=== PATIENT | female | born 1970 | race Caucasian/White ===

== ENCOUNTER 2024-07-17 06:55 | Day surgery (SDC) | payer OTHER, SELFPAY ==
[2024-07-17] VITALS (8 sets, daily range): BP systolic 68–110; BP diastolic 57–67; PULSE 60–74; RESP 12–16; TEMP 36.4–37.2; O2SAT 98–100
--- NOTE | 2024-07-17 07:30 | PCM.PRE.AN2 ---
ASA Classification* ASA Classification ASA Classification: 2 Assessment & Plan Anesthesia* Anesthesia Assessment Anesthesia Assessment: Discussed sedation and/or anesthesia options, risks, benefits, and alternatives with patient/parents/legal guardian/POA. Questions invited. The patient/parents/legal guardian/POA seems to understand and agrees to proceed with anesthesia plan. Reviewed the physical assessment, medical history, allergy history and patient home medications list prior to surgery/procedure/anesthetic and documented any changes. Performed airway and anesthesia risk assessments. 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 When Was Last Pacemaker Check QUESTION #4 FULL TEXT: You/Your Family Experience fever (hyperthermia) with Anesthesia Last Oral Intake Last Oral intake: Last Oral Intake NPO since 04:00 07/17/24 07:26 Meds taken in AM with sips of water? Meds patient instructed to take am of surgery PONV PONV - food and beverage order clerk: PONV - food and beverage order clerk Female Yes 07/16/24 09:03 HX of Motion Sickness Yes 07/16/24 09:03 HX of N/V After Surgery Yes 07/16/24 09:03 Non-Smoker Yes 07/16/24 09:03 Duration of Surgery greater No 07/16/24 09:03 than 60 minutes Number of Risk Factors 4 07/16/24 09:03 PONV Score Severe Risk 07/16/24 09:03 Height & Weight Height & Weight: Anesthesia: Height & Weight Height 5 ft 7 in 07/17/24 07:26 Weight: 58 kg 07/17/24 07:26 Body Mass Index (BMI) 20.0 07/17/24 07:26 Respiratory Assessment Respiratory Assessment - food and beverage order clerk: Respiratory Tract Infection Hx - food and beverage order clerk Hx Respiratory Tract Infection No 07/16/24 09:03 STOP Sleep Apnea STOP Sleep Apnea - food and beverage order clerk: STOP Sleep Apnea - food and beverage order clerk Hx Hypertension No 07/16/24 09:03 Hx Sleep Apnea No 07/16/24 09:03 CPAP BIPAP Do you snore loudly (louder No 07/16/24 09:03 than talking or can be heard Do you often feel tired/ No 07/16/24 09:03 fatigued/ sleepy during daytime? Has anyone observed you stop No 07/16/24 09:03 breathing during sleep? STOP Results Negative 07/16/24 09:03 QUESTION #5 FULL TEXT : Do you snore loudly (louder than talking or can be heard through closed doors)? 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 Specify any problems Hx of Preganancy in last 3 No 07/16/24 09:03 Months Nurse Filling Out Transfusion VCHRISTIN 07/16/24 09:03 & Questions: Date: 07/16/24 07/16/24 09:03 Time: 09:05 07/16/24 09:03 Patient unable to answer at this time (ie. confused, unrespo /Reproduction History /Reproductive History - food and beverage order clerk: /Reproductive Hx- food and beverage order clerk Hx Now No 07/16/24 09:03 Gestational Age (in weeks): EDC: Hx Hx Para Hx Section SAB No 07/16/24 09:03 Active Medications Active Medications: Current Medications Generic Name Dose Route Start Last Admin Trade Name Freq PRN Reason Stop Dose Admin Lactated Ringer's 1,000 mls @ 15 mls/hr 07/17/24 07:15 07/17/24 07:31 IV 15 mls/hr .Q48H PATTIE Administration PFSH Medical History Gastric reflux Non-smoker History of echocardiogram Low back pain Home Medications ?Medication ?Instructions ?Recorded ?Last Taken ?Type Lactobacillus acidophilus 10 100 mmu cells PO DAILY 07/16/24 Unknown History billion cell capsule (NewFlora) apple cider vinegar 600 mg capsule 600 mg PO DAILY 07/16/24 Unknown History ascorbic acid (vitamin C) 500 mg 500 mg PO DAILY PRN cold symptoms 07/16/24 Unknown History tablet (C-500) cholecalciferol (vitamin D3) 25 25 mcg PO DAILY COLD SYMPTOMS 07/16/24 Unknown History mcg (1,000 unit) capsule (Vitamin D3) multivitamin (Daily Multi-Vitamin 1 tab PO DAILY 07/16/24 Unknown History tablet) zinc gluconate 50 mg tablet 50 mg PO DAILY PRN cold symptoms 07/16/24 Unknown History Allergy/AdvReac Type Severity Reaction Status Date / Time No Known Allergies Allergy Verified 07/16/24 08:55 Surgical History Hx of tubal ligation Hx of surgical fusion joint Hx of hernia repair Hx of section Social History Smoking Status: Never smoker Review of Systems (Anesthesia) ROS Narrative System reviewed and no additional complaints, except as documented.
[2024-07-17] MEDS: Lactated Ringers 1,000 ML 15 ML IV (07:31)
--- NOTE | 2024-07-17 07:45 | PCM.HP.BLA ---
History and Physical Date of Admission: 07/17/24 MICKEY TORREZ, is a 54 F who presents to the office today for initial consult. *[facility] established 8 pt reports that she has an external hemorrhoid that has been bothering her recently; she said it aches and she notices it when she sits. pt reports that her last colonoscopy was in 2016. Pt reports a long history of GERD and takes OTC supplements to manage this. ROS Const Constitutional: Positive for fatigue; No fever(s) or weight change ENT ENT: No difficulty swallowing Gastro GI: Positive for bloating, change in bowel habits, constipation, diarrhea, heartburn and excessive flatus; No abdominal pain, belching, change in stool character, coffee ground emesis, cramping, difficulty swallowing, feeling full early, incontinent of stools, Vomiting blood/hematemesis, Blood in stool, loose stools, Black,tarry stools, nausea/dyspepsia, pain with swallowing, vomiting or other Musc Musculoskeletal: Positive for muscle cramps, numbness, tingling and restless legs; No joint pain Skin Skin: No yellowing of the eye or itchy eyes Neuro Neurology: Positive for numbness, tingling and restless legs Psych Psychiatric: No anxiety and No depression Endo Endocrine: Positive for fatigue; No weight change Aller/Imm Allergy/Immunologic: No itchy eyes Delfino/Lymp Hematologic/Lymphatic: No easy bleeding or easy bruising Exam Const General: cooperative and comfortable Nutritional Appearance: average body habitus and well nourished [facility] Head: normal to inspection Ears: hearing grossly normal bilaterally Nose: external nose normal Face and sinus: normal facial exam Mouth: oral mucosae normal Throat: posterior oropharynx normal Eyes General: appearance normal, both eyes and all related structures Neck Neck: normal visual inspection Chest Chest palpation & inspection: normal inspection of the chest and normal palpation of entire chest wall Resp Effort & Inspection: normal respiratory effort Auscultation: Bilateral: Clear to Auscultation Cardio Palpation: normal PMI Rate: regular rate Rhythm: regular rhythm GI Inspection: normal to inspection Auscultation: normal bowel sounds Percussion: normal to percussion Palpation: no hepatosplenomegaly Skin General: no rashes or lesions noted Neuro General: patient alert Extrem General: normal to inspection Psych Affect: normal affect Assessment and Plan Assessment and Plan (1) Hemorrhoids: (2) Encounter for screening colonoscopy: Status: Acute Plan: Very pleasant 54-year-old with no significant past medical history comes in with pressure and pain per rectum. She has a known history of hemorrhoidal disease that was poorly responsive to therapy however it is getting to be an issue regarding sitting and other daily activities. She says she has not had a screening colonoscopy we will schedule her for a screening colonoscopy and treatment of her hemorrhoidal disease. She was explained alternatives, risk, benefits include not withstanding bleeding, infection, sepsis, perforation, need for emergent urgent . She have an ASA of 3. Orders: Orders Colonoscopy Today K64.9 - Unspecified hemorrhoids I have examined the patient and the H&P has been reviewed. There are no clinical changes since date of exam.
--- NOTE | 2024-07-17 08:53 | OP.CCLET_ITS ---
07/17/2024 Valente Gamez Do Re : Colonoscopy procedure for Danielle Witt Dear Franco This procedure was performed on Wednesday, July 17, 2024. My impressions and recommendations are as follows: Impressions : - Hemorrhoids found on perianal exam. - Non-bleeding external and internal hemorrhoids. Banded. - Anal fissure. Treated with argon plasma coagulation (APC). - Diverticulosis in the recto-sigmoid colon and in the sigmoid colon. - No specimens collected. Recommendations : - Repeat colonoscopy in 10 years for screening purposes. - Continue present medications. My findings are described in the full procedure note, which is enclosed. If I can be of further assistance, please feel free to contact me at . Sincerely, Jose Shaikh, 07/17/2024 8:52:53 AM This report has been signed electronically.
--- NOTE | 2024-07-17 08:53 | OP.COLON_ITS ---
Patient Name: Danielle Witt Procedure Date: 07/17/2024 8:11 AM Date of : 1970 Age: 54 Procedure: Colonoscopy Indications: Screening for colorectal malignant neoplasm Providers: Jose Shaikh DO Medicines: Monitored Anesthesia Care Patient Profile: This is a 54 year old female. Refer to note in patient chart for documentation of history and physical. Last Colonoscopy: 10 years ago. Complications: No immediate complications. Procedure: Pre-Anesthesia Assessment: - Prior to the procedure, a History and Physical was performed, and patient medications and allergies were reviewed. The patient is competent. The risks and benefits of the procedure and the sedation options and risks were discussed with the patient. All questions were answered and informed consent was obtained. Patient identification and proposed procedure were verified by the physician in the pre-procedure area. Mental Status Examination: alert and oriented. Airway Examination: normal oropharyngeal airway and neck mobility. Respiratory Examination: clear to auscultation. CV Examination: normal. Prophylactic Antibiotics: The patient does not require prophylactic antibiotics. Prior Anticoagulants: The patient has taken no anticoagulant or antiplatelet agents except for NSAID medication. ASA Grade Assessment: II - A patient with mild systemic disease. After reviewing the risks and benefits, the patient was deemed in satisfactory condition to undergo the procedure. The anesthesia plan was to use monitored anesthesia care (MAC). Immediately prior to administration of medications, the patient was re-assessed for adequacy to receive sedatives. The heart rate, respiratory rate, oxygen saturations, blood pressure, adequacy of pulmonary ventilation, and response to care were monitored throughout the procedure. The physical status of the patient was re-assessed after the procedure. After I obtained informed consent, the scope was passed under direct vision. Throughout the procedure, the patient's blood pressure, pulse, and oxygen saturations were monitored continuously. The Colonoscope was introduced through the anus and advanced to the cecum, identified by appendiceal orifice and ileocecal valve. The colonoscopy was performed without difficulty. The patient tolerated the procedure well. The quality of the bowel preparation was adequate. The ileocecal valve, appendiceal orifice, and rectum were photographed. Scope In: 8:22:21 AM Scope Withdrawal Time 0 hours 15 minutes 24 seconds Scope Out: 8:42:31 AM Total Procedure Duration Time 0 hours 20 minutes 10 seconds Findings: Hemorrhoids were found on perianal exam. Non-bleeding external and internal hemorrhoids were found during retroflexion. The hemorrhoids were Grade II (internal hemorrhoids that prolapse but reduce spontaneously). The endoscope was withdrawn. A hemorrhoid was isolated with anoscopy. The ShortShot ligator was positioned over the hemorrhoid at the left lateral position. Suction was applied and one rubber band was placed over the hemorrhoid. This was checked to make certain that the muscularis was free of the band. Post-banding digital rectal exam showed band in good position. There were no complications. A 5 mm anal fissure was found in the anal canal. Coagulation for bleeding prevention using argon plasma at 0.3 liters/minute and 20 batista was successful. Estimated blood loss was minimal. A few small and large-mouthed diverticula were found in the recto-sigmoid colon and sigmoid colon. Impression: - Hemorrhoids found on perianal exam. - Non-bleeding external and internal hemorrhoids. Banded. - Anal fissure. Treated with argon plasma coagulation (APC). - Diverticulosis in the recto-sigmoid colon and in the sigmoid colon. - No specimens collected. Recommendation: - Repeat colonoscopy in 10 years for screening purposes. - Continue present medications. Procedure Code(s): --- Professional --- 19536, Colonoscopy, flexible; with control of bleeding, any method 76755, Hemorrhoidectomy, internal, by rubber band ligation(s) CPT copyright 2021 [employer]. All rights reserved. The codes documented in this report are preliminary and upon gripper machine operator review may be revised to meet current compliance requirements. Jose Shaikh DO 07/17/2024 8:52:53 AM This report has been signed electronically. Number of Addenda: 0 Note Initiated On: 07/17/2024 8:11 AM
--- NOTE | 2024-07-17 08:53 | PCM.POST.ANE ---
Anesthesia: Postop Eval I Current Vital Signs Temperature: 98.3 F Pulse Rate: 61 Blood Pressure: 86/59 Respiratory Rate: 12 Pulse Ox: 98 Oxygen Delivery Method: Room Air Assessment Airway patent: Yes Spontaneous unlabored respirations: Yes Mental status: Asleep nausea: No Vomiting: No Anesthesia Complication: No Fluid Hydration Crystalloid volume administer (ml): 1,200 Total IV fluid infused: 1,200 Progress Note Anesthesia document: Postop Eval 1 completed: Yes
[2024-07-17] MEDS: Acetaminophen 500 MG Tablet 1000 MG PO (09:23)
--- NOTE | 2024-07-17 13:36 | PCM.POSTANE2 ---
Anesthesia Postop Eval I Sum Postop Eval Completion status Anesthesia document: Postop Eval 1 completed: Yes Anesthesia Postop Eval I Summary Anesthesia Postop Eval I Summary: Anesthesia Postop Eval I: Assessment Summary Airway patent Yes 07/17/24 08:54 [email or web address] Spontaneous unlabored Yes 07/17/24 08:54 [email or web address] respirations Mental status Asleep 07/17/24 08:54 [email or web address] nausea No 07/17/24 08:54 [email or web address] Vomiting No 07/17/24 08:54 [email or web address] Anesthesia Postop Eval I: Fluid Summary Crystalloid volume administer 1,200 07/17/24 08:54 [email or web address] (ml) Colloids volume administered ( ml) Blood Product volume administered (ml) Total IV fluid infused 1,200 07/17/24 08:54 [email or web address] Anesthesia Postop Eval I: Summary Notes Anesthesia Complication No 07/17/24 08:54 [email or web address] Anesthesia Complication Comment: Post-operative progress note Anesthesia: Postop Eval II Evaluation Mental status: Awake Pain Level: 0 nausea: No Vomiting: No
== END 2024-07-17 09:40 | disposition home or self-care (01) ==
LOC: EN 06:56 → AC 06:57
PROVIDERS: PCP Physician Assistant; Referring Provider Physician Assistant; Visit Provider Internal Medicine Gastroenterology
PROC: 0DJD8ZZ Inspection of Lower Intestinal Tract, Via Natural or Artificial Opening Endoscopic (ICD-10-PCS; CPT 45378; principal; 2024-07-17 07:55)
DX: Z12.11 Encounter for screening for malignant neoplasm of colon (principal); K57.30 Diverticulosis of large intestine without perforation or abscess without bleeding; K60.2 Anal fissure, unspecified; K64.4 Residual hemorrhoidal skin tags; K64.1 Second degree hemorrhoids; K21.9 Gastro-esophageal reflux disease without esophagitis
CPT/HCPCS: 45382; 46221; J7120; J2405